=== PATIENT | female | born 1955 | race Caucasian/White ===

== ENCOUNTER 2020-02-13 09:08 | Inpatient (IN) | payer MEDICARE, SELFPAY ==
[2020-02-13] VITALS (20 sets, daily range): BP systolic 117–147; BP diastolic 51–98; PULSE 62–111; RESP 10–29; TEMP 36.4–37.1; O2SAT 88–99; BMI 41.8
--- NOTE | ~2020-02-13 | XR_ITS ---
EXAMINATION: XR chest 1V portable INDICATION: Increasing shortness of breath, COVID 19 positive TECHNIQUE: Portable AP chest at 0945 hours COMPARISON: 08/20/2018 FINDINGS: There are airspace opacities of the left mid and lower lung zones. No pleural effusion or p neumothorax is identified. The cardiomediastinal silhouette is normal. IMPRESSION: 1. Airspace opacities of the left mid and lower lung zones, compatible with COVID 19 pneumonia. Reviewed, dictated and finalized at location A. IMPRESSION: 1. Airspace opacities of the left mid and lower lung zones, compatible with COV ID 19 pneumonia.
--- NOTE | 2020-02-13 09:18 | ECG_ITS ---
Measurements Intervals [place] Rate: 104 P: 23 ME: 136 QRS: -29 QRSD: 85 T: -8 QT: 331 QTc: 436 Interpretive Statements SINUS TACHYCARDIA ATRIAL PREMATURE COMPLEXES INCOMPLETE RIGHT BUNDLE BRANCH BLOCK LOW QRS VOLTAGE IN PRECORDIAL LEADS POOR R WAVE PROGRESSION, ANTERIOR LEADS BORDERLINE T WAVE ABNORMALITY- INFERIOR LEADS BASELINE ARTIFACT- I, II, III, AVR, AVL, AVF, V1, V4-V6 ABNORMAL ECG Electronically Signed On 02-13-2020 9:40:29 CDT by Jacob Raphael D.O.
--- NOTE | 2020-02-13 09:30 | PC.NURSE ---
Patient running in place with this RN, pulse ox dropped down to 89% on room air, patient states shortness of breath increased.
[2020-02-13 09:37] LABS: Basophils Percent Auto 0.2 % (0.2-1.2); Eosinophils Percent Auto 0.2 % (0-4.4); Hematocrit 42.8 % (37.0-47.0); Immature Granulocyte Absolute 0.02 K/mm3 (0.00-0.031); Immature Granulocyte Percent A 0.4 % (0-0.5); Lymphocytes Absolute Auto 1.46 K/mm3 (0.9-3.2); Lymphocytes Percent Auto 27.3 % (18.3-44.2); Mean Corpuscular HGB Conc 32.7 g/dl (32-36); Mean Corpuscular Hemoglobin 30.6 pg (26-34); Mean Corpuscular Volume 93.4 fl (80-100); Mean Platelet Volume 10.4 fl (7.4-10.4); Monocytes Absolute Auto 0.5 K/mm3 (0.1-0.6); Monocytes Percent Auto 9.6 % (2.6-8.5); Neutrophils Absolute Auto 3.3 K/mm3 (1.3-6.7); Neutrophils Percent Auto 62.3 % (45.5-73.1); Platelet Count Result 166 k/mm3 (150-375); Red Blood Count 4.58 M/mm3 (4.2-5.4); Red Cell Distribution Width 13.2 % (11.5-14.5); White Blood Count 5.3 K/mm3 (4.5-10.0)
[2020-02-13 09:51] LABS: Anion Gap 13.4 mmol/L (7-16); Blood Urea Nitrogen 13 mg/dL (7-17); Carbon Dioxide 26 mmol/L (22-30); Chloride 102 mmol/L (98-107); Estimated CRCL calculation 72 ml/min; Estimated Glomerular Filt Rate > 60; Glucose 127 mg/dL (65-105); Lactic Acid Reflex 0.7 mmol/L (0.7-2.1); Potassium 4.4 mmol/L (3.4-5.0); Sodium 137 mmol/L (137-145)
--- NOTE | 2020-02-13 10:45 | ED.SOB ---
HPI - SOB/Dyspnea General Chief Complaint: Shortness of Breath/Dyspnea Stated Complaint: covid +, worsening sob Time Seen by Provider: 02/13/20 09:15 History of Present Illness HPI Narrative: Patient is a 64-year-old female who presents ER with shortness of breath. Patient reports 1 week ago she started having sinus congestion and then lost her sense of taste and smell. Spam feeling more well couple days ago and tested positive for COVID-19 on 02/11/2020. Today she woke up and she feels more short of breath/when she tries to take a deeper breath feels like she just does not fully get her breath. Low-grade temps. No fevers or chills or sweats. She has no chest pain or pressure. Reports exertional dyspnea. Dry cough that is nonproductive. Related Data Home Medications Medication Instructions Recorded Confirmed naproxen 500 mg PO PRN PRN 02/13/20 02/13/20 Allergies Allergy/AdvReac Type Severity Reaction Status Date / Time cephalexin Allergy Unknown Hives Verified 02/13/20 09:11 CEPHALEXIN MONOHYDRATE Allergy Severe HIVES Uncoded 02/13/20 09:11 Review of Systems Review of Systems: All systems reviewed & are unremarkable except as noted in HPI and below Constitutional: Constitutional: Denies chills, Reports fatigue and Denies fever(s) ENT: Reports nasal congestion and Reports sore throat Comments: loss of taste/smell Cardiovascular: Cardiovascular: Denies chest pain and Denies radiating jaw, neck or arm pain Respiratory: Respiratory: Reports chest congestion, Reports cough, Reports dyspnea and Denies wheezing Gastrointestinal: Gastrointestinal: Denies abdominal pain, Denies nausea and Denies vomiting Genitourinary: Genitourinary: Denies nocturia and Denies dysuria [facility] Past Medical History Medical History (Updated 02/13/20 @ 18:17 by Silverio Ferraro MD) Healthy female adult Rectal polyp (~05/2015) Hyperplastic polyp removed per Dr. Vasquez. Surgical History Surgical History (Updated 02/13/20 @ 17:40 by Christine Martinez PA-C) History of arthroscopy of right knee (~02/2018) Partial medial meniscectomy per Dr. iGll. History of breast biopsy History of section Family History Family History (Updated 02/13/20 @ 17:41 by Christine Martinez PA-C) Father Carcinoma of colon Sibling Carcinoma of colon Mother Family history of malignant neoplasm of cervix Family history of lung cancer Family history of malignant neoplasm of breast in first degree relative Carcinoma of colon Family history of malignant neoplasm of brain Son Neurofibromatosis type II Social History Social History Smoking status: Never smoker Second hand tobacco smoke exposure: No Alcohol intake: current Substance use: never Gender identity (if verbalized by the patient): Female Sexual Orientation (if Verbalized by the Patient): Straight or Heterosexual Spiritual care concerns: Yes (would like a visit or call) Exam Narrative: Exam Narrative: GENERAL: Well-appearing, well-nourished, and in no acute distress. HEAD: Normocephalic, atraumatic. ENT: Mucous membranes moist. CHEST: Clear to auscultation. No respiratory distress. HEART: Regular rate and rhythm. Normal peripheral pulses. EXTREMITIES: Normal range of motion. No edema. SKIN: Warm, dry, no rash. NEURO: Alert and oriented x3. PSYCH: Normal mood and affect. Course Course Emergency Course: Patient hypoxic with exertion and intermittently at rest. Admit to hospital service for antibiotics and updraft treatments. Vital Signs Vital signs: Vital Signs Temperature 98.4 F 02/13/20 09:20 Pulse Rate 111 H 02/13/20 09:20 Respiratory Rate 24 H 02/13/20 09:20 Blood Pressure 147/98 H 02/13/20 09:20 Pulse Oximetry 96 02/13/20 09:20 Temperature 97.6 F 02/13/20 16:00 Pulse Rate 98 02/13/20 16:00 Respiratory Rate 22 H 02/13/20 16:00 Blood Pressure 127/51
[2020-02-13] MEDS: DEXAMETHASONE 2 MG TABLET 6 MG PO (11:19)
--- NOTE | 2020-02-13 11:59 | PC.NURSE ---
Report attemptedSindhu on third floor states nurse is busy at this time, and will call the ER when she is ready.
--- NOTE | 2020-02-13 12:08 | PC.NURSE ---
Report attempted again, Sindhu on third floor states nurse and charge nurse are busy at this time. They will call ER when ready
[2020-02-13] MEDS: ACETAMINOPHEN 325 MG TABLET 650 MG PO ×2 (13:04→20:46)
--- NOTE | 2020-02-13 13:14 | ADMGEN ---
This patient, Tawnya Arias, was admitted to [facility] Surg Room 330-01. Patient/family oriented to hospital policies and general routines including ID bracelet, bed and alarms, visiting hours, pain management, procedures, bathroom and other care routines, personal items, smoking policy, room service/diet, and visiting hours. Valuables list has been completed. Information on how to activate the Rapid Response Team has been discussed. Patient/Family are encouraged to report perceived risks to care and to ask questions if they do not understand what they are told or what they should do.
[2020-02-13] MEDS: ALBUTEROL SULFATE (*SP) INHALER 1 PUFF (13:22)
[2020-02-13] MEDS: ALBUTEROL SULFATE (*SP) AEROSOL 1 PUFF 2 PUFF INHALATION ×3 (13:22→20:49)
--- NOTE | 2020-02-13 15:45 | PM.IMHP ---
H&P: HPI History of Present Illness Date/Time: 02/13/20 15:45 Chief complaint: Shortness of breath. Narrative: Tawnya Arias is a Pleasant 64-year-old female without significant medical history presented to the emergency department earlier this morning via private vehicle from home for evaluation of shortness of breath. Last Monday she and her drove via car to [facility], transporting a family member who was recently hospitalized back home. They returned home last Monday and at that time she reports having mild sinus congestion and shortly thereafter she noticed a decrease in smell and taste. Since that time, it has come to light that her son, [id number], and grandchild had tested positive for COVID-19. She was tested on February 10 and was found to be positive as well. Since being tested, she has had increasing feelings of shortness of breath, feeling like she is having a hard type taking in a deep breath. additionally she has had a low-grade fever up to 99.8, diffuse frontal headache, and has had periods of lightheadedness along with mild tachycardia with exertion. She has not necessarily had a cough. She denies nausea, vomiting, and diarrhea. She denies chest pain, pleuritic pain, lower extremity edema, and history of venous thromboembolism. Review of Systems Review of Systems: Narrative: Twelve systems were reviewed with pertinent positives and negatives as per HPI. No new medication she takes at home is naproxen, 1 time a day and she has for couple of years due to knee pain. She denies GERD and indigestion symptoms. No hematemesis or melena. Strong family history for colon cancer, and recent testing for Bhandari syndrome was negative. Except as documented, all other systems were reviewed and are negative. [facility] Past Medical History Medical History (Updated 02/13/20 @ 18:17 by Silverio Ferraro MD) Healthy female adult Rectal polyp (~05/2015) Hyperplastic polyp removed per Dr. Vasquez. Surgical History Surgical History (Updated 02/13/20 @ 17:40 by Christine Martinez PA-C) History of arthroscopy of right knee (~02/2018) Partial medial meniscectomy per Dr. Gill. History of breast biopsy History of section Family History Family History (Updated 02/13/20 @ 17:41 by Christine Martinez PA-C) Father Carcinoma of colon Sibling Carcinoma of colon Mother Family history of malignant neoplasm of cervix Family history of lung cancer Family history of malignant neoplasm of breast in first degree relative Carcinoma of colon Family history of malignant neoplasm of brain Son Neurofibromatosis type II Social History Social History (Updated 02/14/20 @ 00:20 by Christine Martinez PA-C) Social History: The patient is and lives home with her . 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 No alcohol or illicit substance abuse. She designates her as her surrogate decision maker and she wishes to be a full code. Smoking status: Never smoker Second hand tobacco smoke exposure: No Alcohol intake: current Substance use: never Gender identity (if verbalized by the patient): Female Sexual Orientation (if Verbalized by the Patient): Straight or Heterosexual Spiritual care concerns: Yes (would like a visit or call) Meds Home Medications and Allergies Home Medications Medication Instructions Recorded Confirmed Type naproxen 500 mg PO PRN PRN 02/13/20 02/13/20 History Allergies Allergy/AdvReac Type Severity Reaction Status Date / Time cephalexin Allergy Unknown Hives Verified 02/13/20 09:11 CEPHALEXIN MONOHYDRATE Allergy Severe HIVES Uncoded 02/13/20 09:11 Vital Signs Vital Signs - 24 hr 02/13/20 09:20 02/13/20 09:29 02/13/20 09:31 Temperature 98.4 F Pulse Rate 104 H 108 H 98 Respiratory Rate 24 H 16 17 Blood Pressure 147/98 H 147/98 H 145/70 H Pulse Oximetry 96 95 94 02/13/20
[2020-02-14] VITALS (9 sets, daily range): BP systolic 112–142; BP diastolic 51–65; PULSE 57–110; RESP 18–24; TEMP 36.4–37.2; O2SAT 91–96
[2020-02-14] MEDS: NAPROXEN 500 MG TABLET PO (05:16)
[2020-02-14 06:19] LABS: Hematocrit 40.3 % (37.0-47.0); Hemoglobin 13.1 g/dL (12.0-15.0); Mean Corpuscular HGB Conc 32.5 g/dl (32-36); Mean Corpuscular Hemoglobin 30.1 pg (26-34); Mean Corpuscular Volume 92.6 fl (80-100); Mean Platelet Volume 10.4 fl (7.4-10.4); Platelet Count Result 195 k/mm3 (150-375); Red Blood Count 4.35 M/mm3 (4.2-5.4); Red Cell Distribution Width 12.8 % (11.5-14.5); White Blood Count 5.2 K/mm3 (4.5-10.0)
[2020-02-14 06:46] LABS: Alanine Aminotransferase 27 U/L (4-35); Alkaline Phosphatase 77 U/L (38-126); Anion Gap 12.9 mmol/L (7-16); Aspartate Amino Transferase 23 U/L (14-36); Bilirubin,Total 0.2 mg/dL (0.2-1.3); Blood Urea Nitrogen 13 mg/dL (7-17); Calcium 8.9 mg/dL (8.4-10.2); Carbon Dioxide 26 mmol/L (22-30); Chloride 105 mmol/L (98-107); Estimated CRCL calculation 97 ml/min; Estimated Glomerular Filt Rate > 60; Glucose 171 mg/dL (65-105); Potassium 4.9 mmol/L (3.4-5.0); Sodium 139 mmol/L (137-145)
[2020-02-14 06:47] LABS: CRP 5.2 mg/dL (<1.0); Lactate Dehydrogenase 550 U/L (313-618)
[2020-02-14] MEDS: DEXAMETHASONE 2 MG TABLET 6 MG PO (08:45)
[2020-02-14] MEDS: ENOXAPARIN 40 MG/0.4 ML SYRINGE SUB-Q (08:45)
[2020-02-14] MEDS: ALBUTEROL SULFATE (*SP) AEROSOL 1 PUFF 2 PUFF INHALATION ×3 (09:35→15:37)
--- NOTE | 2020-02-14 11:40 | HOMEO2EVAL ---
Home Oxygen Evaluation RC: Home Oxygen (O2) Evaluation Start: 02/14/20 10:11 Freq: ONCE Status: Active Protocol: RPE Activity Type Activity Date Activity User E-Sign Co-Sign Detail Recorded Client Recorded Date Recorded By Document 02/14/20 11:15 SHRADDHA [id number] 02/14/20 11:40 SHRADDHA Document 02/14/20 11:20 SHRADDHA [id number] 02/14/20 11:40 SHRADDHA Document 02/14/20 11:25 SHRADDHA [id number] 02/14/20 11:40 SHRADDHA 02/14/20 02/14/20 02/14/20 11:15 11:20 11:25 Home O2 Evaluation Test Phase Resting Exercise Resting Oxygen Delivery Room Air Room Air Room Air Pulse Oximetry (90-100 %) 94 91 93 Pulse Rate (60-100 beats/min) 78 110 H Activity Tolerance Excellent Ambulation Distance (feet) 200 Home Oxygen Evaluation Comments PATIENT WALKED IN ROOM. NO HOME O2 REQUIRED AT THIS TIME. Treatment Charges O2 Evaluation
--- NOTE | 2020-02-14 11:40 | PCRCNOTE ---
HOME O2 EVAL COMPLETED. NO HOME O2 NEEDED AT THIS TIME. RN AND PA AWARE.
--- NOTE | 2020-02-14 14:09 | PM.DS ---
DS: Admitting Diagnosis Admitting Diagnosis Admitting Diagnosis: Pneumonia due to 2019 novel coronavirus DS: Discharge Diagnosis Discharge Diagnosis (1) Pneumonia due to 2019 novel coronavirus: Code(s): U07.1 - COVID-19; J12.89 - Other viral pneumonia Status: Acute Assessment and Plan: Patient tested positive on 02/11/2020. She began having symptoms approximately 5 days prior. Her inflammatory markers were monitored. Due to intermittent hypoxia, she was started on dexamethasone and she received 2 doses. She was weaned to room air and was maintaining adequate oxygenation. She had a home O2 eval and she did not require any additional home oxygen. Preliminary blood culture showed NGTD and final cultures will be monitored. Her symptoms improved and she began feeling much better. She will follow-up with her PCP in 1 week to monitor her symptoms. (2) Hypoxia: Code(s): R09.02 - Hypoxemia Status: Acute Assessment and Plan: She required 1 L of O2 per nasal cannula for a brief time due to intermittent hypoxia. She was weaned to room air as above and did not require home oxygen. DS: Summary Hospital Course Reason for hospitalization: Shortness of breath, COVID positive Hospital Course: Date of admission: 02/13/2020 Date of discharge: 02/14/2020 Tawnya Arias is a healthy 64-year-old female who presented to the emergency department on 02/13/2020 with complaints of shortness of breath. Approximately 1 week ago, she began having sinus congestion and loss of sense of taste and smell. She called her PCP and had outpatient testing at the drive-through testing facility [facility]. She does not positive on 02/11/2020. On 02/12, she felt more short of breath and had difficulty taking deep breath, as well as low-grade fever with T-max 99.8?. at presentation, she was mildly tachycardic and tachypneic, WBC 5.3, electrolytes stable, and CXR showing airspace opacities of the left mid and lower lung zones compatible with COVID-19 pneumonia. She was admitted to the hospitalist service for further evaluation and treatment. She was started on dexamethasone and additional supportive care. She was weaned to room air. She began feeling much better and requested discharge. Given her stable oxygen requirements in symptomatic improvement, she was determined to no longer require inpatient care. Please see above for further details. We discussed importance of self isolation, social distancing, mask wearing, hygiene, and additional methods to help slow the spread of Coronavirus. She will schedule an appointment with her PCP for follow-up in 1 week to discuss her hospital stay. We discussed worrisome signs and symptoms for which she should return. All of her questions were answered. She was discharged in hemodynamically stable condition on 02/14/2020. Status at Discharge Functional status at discharge: independent ambulation Overall status at discharge: patient is back to baseline Time Spent with Patient Time attestation: Total time spent providing and/or coordinating discharge services: 40 minutes Time spent: Greater than 30 minutes Exam Narrative: Exam Narrative: Ms. Arias is a Well-nourished 64-year-old female who is sitting up in bed. She appears comfortable and is in no acute respiratory distress. HR 80, BP 133/52, RR 18, T 98.2?, 94% on room Neuro: awake, alert and oriented x4, speech clear, no focal neuro deficits noted HEENMT: normocephalic, atraumatic, EOMI, sclerae anicteric, moist oral mucosa, tongue midline, nares patent Neck: supple, no lymphadenopathy Respiratory: clear to auscultation bilaterally, nonlabored breathing Cardio: regular rate, regular rhythm with S1-S2 Abdomen: nondistended, normoactive bowel sounds, soft, nontender, to palpation, no rigidity or guarding Extremities: no edema, erythema, cyanosis, clubbing, or tenderness to palpation, DP pulses 2+ bilaterally Skin: no rashes or l
== END 2020-02-14 15:40 | disposition home or self-care (01) | DRG 177 ==
LOC: ANHED 11:21 → ANH3MEDSUR 11:53
PROVIDERS: Physician Assistant; Admitting Provider Family Medicine; Emergency Provider Emergency Medicine; PCP Family Medicine; Visit Provider Physician Assistant
DX: U07.1 COVID-19 (principal); J12.89 Other viral pneumonia; R09.02 Hypoxemia
CPT/HCPCS: 36415; 71045; 80048; 80053; 82728; 83605; 83615; 85025; 85027; 86140; 87040; 93005; 94618; 94640; 96374; 99285; A9270; J0456; J1650; J8540

== ENCOUNTER 2020-04-06 10:56 | Outpatient (CLI) | payer MEDICARE, SELFPAY ==
--- NOTE | ~2020-04-06 | US_ITS ---
EXAMINATION: US venous doppler [facility] EXAM DATE: 04/06/2020 11:41 INDICATION: Left leg pain and swelling, calf. TECHNIQUE: Multiple grayscale, color flow and Doppler images of the left lower extremity deep venous system were obtained and reviewed. There is no prior study for comparison. FINDINGS: The left common femoral, femoral and profunda veins demonstrate normal color flow, respirat ory variation, augmentation and compressibility. Compressibility, color flow confirmed within the le ft popliteal, posterior tibial, peroneal, and greater saphenous veins. IMPRESSION: 1. No left lower extremity deep venous thrombosis. Reviewed, dictated and finalized at location A.
== END 2020-04-06 10:57 | disposition home or self-care (01) ==
LOC: ANHIMG 10:57
PROVIDERS: PCP Family Medicine; Visit Provider Family Medicine
DX: M79.606 Pain in leg, unspecified (principal); R60.9 Edema, unspecified
CPT/HCPCS: 93971

== ENCOUNTER 2020-06-11 08:53 | Outpatient (CLI) | payer MEDICARE, SELFPAY ==
--- NOTE | ~2020-06-11 | MM_ITS ---
EXAMINATION: MM screening tran BI w kranthi HISTORY: Screening TECHNIQUE: Craniocaudal and mediolateral oblique 3-D tomosynthesis images were obtained and synthetic 2-D images were generated. CAD analysis was submitted and interpreted. COMPARISON: No prior mammogram is available for comparison at this institution. BREAST PARENCHYMAL COMPOSITION: There are scattered areas of fibroglandular density. FINDINGS: Stable bilateral axillary tail intramammary lymph nodes. There is no evidence of suspicious mass, calcification, or architectural distortion to suggest malignancy in either breast. There has b een no suspicious interval change. IMPRESSION: 1. No mammographic evidence of malignancy. 2. Recommend routine screening mammography in one year. BI-RADS Category 2: Benign finding(s). Reviewed, dictated and finalized at location A. RESSIVE CARE NURSE
== END 2020-06-11 08:54 | disposition home or self-care (01) ==
LOC: ANHIMG 09:04
PROVIDERS: PCP Family Medicine; Visit Provider Obstetrics & Gynecology
DX: Z12.31 Encounter for screening mammogram for malignant neoplasm of breast (principal)
CPT/HCPCS: 77063; 77067

== ENCOUNTER → 2020-09-05 01:38 | Outpatient (CLI) | payer MEDICARE, SELFPAY ==
[2020-09-05 23:34] LABS: SARS-CoV-2 RNA PCR Negative
== END ==
PROVIDERS: PCP Family Medicine; Visit Provider Internal Medicine Gastroenterology
DX: Z01.812 Encounter for preprocedural laboratory examination (principal); Z20.822 Contact with and (suspected) exposure to COVID-19
CPT/HCPCS: C9803; U0003; U0005

== ENCOUNTER 2020-09-09 00:51 | Day surgery (SDC) | payer MEDICARE, SELFPAY ==
[2020-08-25 14:07] VITALS: BMI 35.3
--- NOTE | 2020-09-08 15:18 | P.PNAN_ITS ---
Anes - Initial Pre Proc Eval Procedure: Operation Date: 09/09/20 07:30 Proposed Procedures p Screening Colonoscopy - Masood Reynoso MD Date/Time: 09/08/20 15:18 Surgeon: Masood Reynoso MD Pre Op Diagnosis: neoplasm screening Patient Data Age: 65 Gender: F Height: 1.52 m Weight: 82 kg Allergies Allergy/AdvReac Type Severity Reaction Status Date / Time cephalexin Allergy Intermediate Hives Verified 08/25/20 14:09 Home Medications Medication Instructions Recorded Confirmed Type naproxen 500 mg PO DAILY 02/13/20 08/25/20 History sodium,potassium,mag sulfates See Rx Instructions .ROUTE 08/07/20 Rx [Suprep Bowel Prep Kit] .COMPLEX #1 ml solifenacin 10 mg PO DAILY 08/25/20 08/25/20 History PMFSH Past Medical History Medical History (Updated 09/08/20 @ 15:19 by Last Monterroso MD) Healthy female adult History of vaginal delivery Obesity Rectal polyp (~05/2015) Hyperplastic polyp removed per Dr. Vasquez. Surgical History Surgical History History of arthroscopy of right knee (~02/2018) Partial medial meniscectomy per Dr. Gill. History of bilateral tubal ligation History of breast biopsy History of section Family History Family History Father Carcinoma of colon Sibling Carcinoma of colon Mother Family history of malignant neoplasm of cervix Family history of lung cancer Family history of malignant neoplasm of breast in first degree relative Carcinoma of colon Family history of malignant neoplasm of brain Son Neurofibromatosis type II Social History Social History Social History: The patient is and lives home with her . 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 No alcohol or illicit substance abuse. She designates her as her surrogate decision maker and she wishes to be a full code. Smoking status: Never smoker Second hand tobacco smoke exposure: No Alcohol intake: current Drinks per week: 2 Substance use: never Substance use type: does not use Gender identity (if verbalized by the patient): Female Spiritual care concerns: No Anes - Eval Final PreProcedure Day of Procedure 09/08/20 15:18 Patient weight: obese Heart: regular rate and rhythm Lungs: clear to auscultation and normal air movement Airway: Mallampati scale class II Neurological: alert and oriented Last oral intake: >/= 8 hours ASA classification: II Emergent: no Anesthetic plan: proceed Anesthesia type and monitoring: general GIVS Informed Consent: The patient's anesthetic plan and its attendant risks and benefits were discussed with the patient/family/POA. Questions were solicited and answers provided to the satisfaction of the patient/family/POA.
[2020-09-09 06:23] VITALS: BP 151/66; PULSE 90; RESP 18; TEMP 36.2; O2SAT 97; BMI 43.9
[2020-09-09] MEDS: LACTATED RINGERS 1,000 ML 150 ML IV CONT (06:36)
--- NOTE | 2020-09-09 06:43 | WPDANESEPPF ---
Anes - Initial Pre Proc Eval Procedure: Operation Date: 09/09/20 07:30 Proposed Procedures p Screening Colonoscopy - Masood Reynoso MD Date/Time: 09/09/20 06:43 Surgeon: Masood Reynoso MD Pre Op Diagnosis: neoplasm screening Patient Data Age: 65 Gender: F Height: 5 ft Weight: 102.2 kg Last Vital Signs Temp 36.2 C L 09/09/20 06:23 Pulse 90 09/09/20 06:23 Resp 18 09/09/20 06:23 BP 151/66 H 09/09/20 06:23 Pulse Ox 97 09/09/20 06:23 Allergies Allergy/AdvReac Type Severity Reaction Status Date / Time cephalexin Allergy Intermediate Hives Verified 09/09/20 06:22 Home Medications Medication Instructions Recorded Confirmed Type naproxen 500 mg PO DAILY 02/13/20 08/25/20 History sodium,potassium,mag sulfates See Rx Instructions .ROUTE 08/07/20 Rx [Suprep Bowel Prep Kit] .COMPLEX #1 ml solifenacin 10 mg PO DAILY 08/25/20 08/25/20 History Patient hx anesthesia problems: none Family hx anesthesia problems: none PMFSH Past Medical History Medical History Healthy female adult History of vaginal delivery Obesity Rectal polyp (~05/2015) Hyperplastic polyp removed per Dr. Vasquez. Surgical History Surgical History History of arthroscopy of right knee (~02/2018) Partial medial meniscectomy per Dr. Gill. History of bilateral tubal ligation History of breast biopsy History of section Family History Family History Father Carcinoma of colon Sibling Carcinoma of colon Mother Family history of malignant neoplasm of cervix Family history of lung cancer Family history of malignant neoplasm of breast in first degree relative Carcinoma of colon Family history of malignant neoplasm of brain Son Neurofibromatosis type II Social History Social History Social History: The patient is and lives home with her . 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 No alcohol or illicit substance abuse. She designates her as her surrogate decision maker and she wishes to be a full code. Smoking status: Never smoker Second hand tobacco smoke exposure: No Alcohol intake: current Drinks per week: 2 Substance use: never Substance use type: does not use Living arrangements: with family Gender identity (if verbalized by the patient): Female Spiritual care concerns: No Anes - Eval Final PreProcedure Day of Procedure 09/09/20 06:43 Patient weight: overweight Heart: regular rate and rhythm Lungs: clear to auscultation Airway: Mallampati scale class II Neurological: alert and oriented Last oral intake: >/= 8 hours ASA classification: II Emergent: no Anesthetic plan: proceed Anesthesia type and monitoring: general GIVS and standard monitoring Informed Consent: The patient's anesthetic plan and its attendant risks and benefits were discussed with the patient/family/POA. Questions were solicited and answers provided to the satisfaction of the patient/family/POA.
--- NOTE | 2020-09-09 07:32 | PM.HPGS ---
History of Present Illness History of Present Illness Consent: Risks, benefits, and alternatives have been discussed and questions answered. Patient agrees to proceed with procedure. Chief complaint: neoplasm screening Narrative: Tawnya Arias is a 65 year old female with history of colon cancer in bother and father, last colonoscopy 2014 Review of Systems Constitutional: Constitutional: Denies headache(s) and Denies weakness Eyes: Eyes: Denies blurry vision ENT: Reports Normal hearing present, Denies headache(s) and Denies neck pain Cardiovascular: Cardiovascular: Denies chest pain and Denies dyspnea Respiratory: Respiratory: Denies dyspnea Gastrointestinal: Gastrointestinal: Reports no additional gastrointestinal complaints Genitourinary: Genitourinary: Denies dysuria Musculoskeletal: Musculoskeletal: Denies neck pain Integumentary/Breasts: Skin/Breast: Denies dry skin Neurologic: Reports Normal hearing present, Denies headache(s) and Denies weakness Psychiatric: Psychiatric: Denies anxiety Endocrine: Endocrine: Denies change in body appearance Hematologic/Lymphatic: Hematologic/Lymphatic: Denies easy bleeding Allergic/Immunologic: Allergic/Immunologic: Denies urticaria PMFSH Past Medical History Medical History Healthy female adult History of vaginal delivery Obesity Rectal polyp (~05/2015) Hyperplastic polyp removed per Dr. Vasquez. Surgical History Surgical History History of arthroscopy of right knee (~02/2018) Partial medial meniscectomy per Dr. Gill. History of bilateral tubal ligation History of breast biopsy History of section Family History Family History Father Carcinoma of colon Sibling Carcinoma of colon Mother Family history of malignant neoplasm of cervix Family history of lung cancer Family history of malignant neoplasm of breast in first degree relative Carcinoma of colon Family history of malignant neoplasm of brain Son Neurofibromatosis type II Social History Social History Social History: The patient is and lives home with her . 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 No alcohol or illicit substance abuse. She designates her as her surrogate decision maker and she wishes to be a full code. Smoking status: Never smoker Second hand tobacco smoke exposure: No Alcohol intake: current Drinks per week: 2 Substance use: never Substance use type: does not use Living arrangements: with family Gender identity (if verbalized by the patient): Female Spiritual care concerns: No Meds Home Medications and Allergies Home Medications Medication Instructions Recorded Confirmed Type naproxen 500 mg PO DAILY 02/13/20 08/25/20 History sodium,potassium,mag sulfates See Rx Instructions .ROUTE 08/07/20 Rx [Suprep Bowel Prep Kit] .COMPLEX #1 ml solifenacin 10 mg PO DAILY 08/25/20 08/25/20 History Allergies Allergy/AdvReac Type Severity Reaction Status Date / Time cephalexin Allergy Intermediate Hives Verified 09/09/20 06:22 Vital Signs Vital Signs - 24 hr 09/09/20 06:23 Temperature 97.2 F L Pulse Rate 90 Respiratory Rate 18 Blood Pressure 151/66 H Pulse Oximetry 97 Exam Const: General: comfortable and no acute distress HENMT: General nose exam: Normal nares present Eyes: General: appearance normal, both eyes and all related structures Neck: Neck: no JVD Resp: Auscultation: clear to auscultation bilaterally Cardio: Rate: regular rate Rhythm: regular rhythm GI: Inspection: non-distended GI Palp: Yes Soft to palpation Skin: General skin exam: normal color Neuro: General: gait normal Sp
[2020-09-09 07:53] VITALS: BP 114/57; PULSE 82; RESP 21; O2SAT 97
[2020-09-09 08:03] VITALS: BP 129/56; PULSE 72; RESP 23; O2SAT 96
[2020-09-09 08:13] VITALS: BP 129/56; PULSE 74; RESP 25; O2SAT 98
== END 2020-09-09 08:20 | disposition home or self-care (01) ==
PROVIDERS: PCP Family Medicine; Visit Provider Internal Medicine Gastroenterology
PROC: 0DJD8ZZ Inspection of Lower Intestinal Tract, Via Natural or Artificial Opening Endoscopic (ICD-10-PCS; CPT 45378; principal; 2020-09-09 07:30)
DX: Z12.11 Encounter for screening for malignant neoplasm of colon (principal); K63.5 Polyp of colon; K64.8 Other hemorrhoids; Z80.0 Family history of malignant neoplasm of digestive organs; E66.01 Morbid (severe) obesity due to excess calories; Z68.41 Body mass index [BMI] 40.0-44.9, adult
CPT/HCPCS: 45380; 88305; J2001; J2704; J7120

== ENCOUNTER → 2021-05-04 17:18 | Outpatient (CLI) | payer MEDICARE, SELFPAY ==
--- NOTE | ~2021-05-04 | US_ITS ---
EXAMINATION: US pelvic complete w TV DATE: 05/04/2021 17:52 INDICATION: Postmenopausal bleeding. Comparison:Ultrasound dated 10/12/2006 TECHNIQUE: Multiple transabdominal and endovaginal sonographic images of the pelvis performed. FINDINGS: The uterus measures 7.2 x 2.9 x 4 cm. The endometrial complex measures 5 mm. Endometrium is heterogeneous. The ovaries are not visualized, likely atrophic. There is no free fluid in the pelvis. There are no abnormal masses seen on either side. IMPRESSION: 1. Thickened endomtrial complex. The differential diagnosis includes endometrial hyperplasia, polyp a nd carcinoma. Biopsy is recommended. Reviewed, dictated and finalized at location A. IMPRESSION: 1. Thickened endomtrial complex. The differential diagnosis includes endometria l hyperplasia, polyp and carcinoma. Biopsy is recommended.
== END ==
PROVIDERS: Visit Provider Obstetrics & Gynecology
DX: N95.0 Postmenopausal bleeding (principal)
CPT/HCPCS: 76830; 76856

== ENCOUNTER 2021-08-25 10:04 | Emergency (ER) | payer MEDICARE, SELFPAY ==
--- NOTE | ~2021-08-25 | XR_ITS ---
EXAMINATION: XR chest 2V DATE: 08/25/2021 10:24 INDICATION: Cough. Chest tightness. TECHNIQUE: Frontal and lateral views of the chest were obtained. COMPARISON: Chest single view 02/13/2020 FINDINGS: The chest demonstrates clear lungs without pneumonia, pleural effusion, or pneumothorax. Th e heart size is normal. IMPRESSION: 1. No acute cardiopulmonary disease. Reviewed, dictated and finalized at location A. [employer]
[2021-08-25 10:10] VITALS: BP 150/86; PULSE 97; RESP 18; TEMP 36.5; O2SAT 97
--- NOTE | 2021-08-25 10:17 | ED.URI ---
HPI - URI/Sore Throat General Chief Complaint: Upper Respiratory Infection Stated Complaint: Cough,Fever,Fatigue Source: patient and RN notes reviewed History of Present Illness HPI Narrative: This is a 66-year-old female who presents to urgent care with complaints shortness of breath, uncontrollable coughing, sinus pressure, postnasal dripping, and shortness of breath with chest tightness. Patient was previously diagnosed with COVID pneumonia and required oxygen on discharge from the hospital. Patient completed a Covid test at home which was negative. Patient influenza negative and chest x-ray did not indicate pneumonia. Patient does have a history of bronchitis and will be treated for bronchitis MD elicited complaint: cough and sinus pain Related Data Home Medications Medication Instructions Recorded Confirmed aspirin 81 mg tablet,delayed 81 mg PO DAILY 04/22/21 08/25/21 release Allergies Allergy/AdvReac Type Severity Reaction Status Date / Time cephalexin Allergy Intermediate Hives Verified 08/25/21 10:11 Review of Systems Review of Systems: A 14 organ system Review of Systems was performed and pertinent positives included in the HPI, otherwise remaining ROS is negative. [facility] Past Medical History Medical History Family history of colon cancer Healthy female adult History of vaginal delivery Obesity Rectal polyp (~05/2015) Hyperplastic polyp removed per Dr. Vasquez. Surgical History Surgical History History of arthroscopy of right knee (~02/2018) Partial medial meniscectomy per Dr. Gill. History of bilateral tubal ligation History of breast biopsy History of carpal tunnel surgery History of section Family History Family History Father Carcinoma of colon Sibling Carcinoma of colon Mother Family history of malignant neoplasm of cervix Family history of lung cancer Family history of malignant neoplasm of breast in first degree relative Carcinoma of colon Family history of malignant neoplasm of brain Son Neurofibromatosis type II Social History Social History Social History: The patient is and lives home with her . 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 No alcohol or illicit substance abuse. She designates her as her surrogate decision maker and she wishes to be a full code. Smoking status: Never smoker Second hand tobacco smoke exposure: No Alcohol intake: current Drinks per week: 2 Substance use: never Substance use type: does not use Gender identity (if verbalized by the patient): Female Sexual Orientation (if Verbalized by the Patient): Straight or Heterosexual Spiritual care concerns: No Exam Narrative: GENERAL: This is a well-nourished, well-developed patient, in no apparent distress. HEAD: normocephalic, atraumatic. EYES: PERRL. Sclera clear/white. Vision is grossly intact. EARS: External ears normal, auditory canals clear and without drainage, TMs normal without perforation. Hearing grossly intact. NOSE: External nose normal with no obvious nasal discharge, nares without redness, no rhinorrhea. THROAT: Mucous membranes moist, posterior pharynx clear. NECK: Neck supple, non-tender without lymphadenopathy, masses or thyromegaly. CARDIOVASCULAR: Regular rate and rhythm without murmurs, gallops, or rubs. RESPIRATORY: Clear to auscultation. Breath sounds equal bilaterally. No wheezes, rales, or rhonchi. GASTROINTESTINAL: Abdomen soft, non-tender, nondistended. Bowel sounds are active. No hepato-splenomegaly, or palpable masses. No guarding. SKIN: warm, intact with no suspicious lesions or rash, good texture and turgor. NEURO: awake, alert, a
== END 2021-08-25 10:41 | disposition home or self-care (01) ==
PROVIDERS: Emergency Provider Nurse Practitioner; PCP Family Medicine
DX: J40 Bronchitis, not specified as acute or chronic (principal); E66.9 Obesity, unspecified; Z68.41 Body mass index [BMI] 40.0-44.9, adult
CPT/HCPCS: 71046; 87804; 99213; G0463

== ENCOUNTER 2021-11-10 07:48 | Outpatient (CLI) | payer MEDICARE, SELFPAY ==
--- NOTE | ~2021-11-10 | DEXA_ITS ---
Bone Density Report Name: DESI KNIGHT Age: 66 Sex: Female Ethnicity: White Date of : 1955 Indication: postmenopausal; screening for osteoporosis; Referring Provider: JUDITH HAWTHORNE Study: Bone densitometry was performed. Exam Date: November 10, 2021 Accession number: [id number] Bone Density: Region BMD T-score Z-score Classification AP Spine(L1-L4) 1.220 1.6 3.6 Normal Femoral Neck (Left) 0.720 -1.2 0.6 Osteopenia Total Hip (Left) 0.999 0.5 1.9 Normal Femoral Neck (Right) 0.644 -1.9 -0.1 Osteopenia Total Hip (Right) 1.055 0.9 2.4 Normal Total Hip Mean 1.027 0.7 2.2 Normal World Health Organization criteria for BMD impression classify patients as: Normal (T-score at or above -1.0), Osteopenia (T-score between -1.0 and -2.5), or Osteoporosis (T-score at or below -2.5). 10-year Fracture Risk(1): Major Osteoporotic Fracture 9.2% Hip Fracture 1.3% Reported Risk Factors: [place] (), Neck BMD=0.644, BMI=43.7 (1) FRAX(R) Version 3.08. Fracture probability calculated for an untreated patient. Fracture probability may be lower if the patient has received treatment. Previous Exams: Region Exam Age BMD T-score BMD Change BMD Change Date g/cm2 vs Baseline vs Previous AP Spine (L1-L4) 11/10/2021 66 1.220 1.6 0.053 (4.6%)* 0.053 (4.6%)* 05/03/2019 64 1.166 1.1 Total Hip(Left) 11/10/2021 66 0.999 0.5 -0.046 (-4.4%) -0.046 (-4.4%) 05/03/2019 64 1.045 0.8 Total Hip(Right) 11/10/2021 66 1.055 0.9 0.000 (0.0%) 0.000 (0.0%) 05/03/2019 64 1.055 0.9 *Denotes significance at 95% confidence level, LSC for AP Spine = 0.022 g/cm2, LSC for Total Hip = 0.027 g/cm2 Clinical Information Provided by Patient: Patient maximum height was 59.5 Menopause Age: 38 No regular weight bearing exercise Onset of menses at age 15 Number of children 2 Impression: The patient has low bone mass, based on the Right Femoral Neck T-score. The patient has an estimated ten-year risk of hip fracture of 1.3% and an estimated ten-year risk of major fracture of 9.2%, based on the WHO FRAX algorithm. The BMD for the Total Hip(Left) decreased, changing by -4.4% since the last DXA exam. Discussion: BONE DENSITY IS LOW AT ONE OR MORE SKELETAL SITES. This patient's lowest T-score is low at one or more skeletal sites. It meets the World Health Organization's (WHO) criteria for ?low bone mass? (T-score between -1.
--- NOTE | ~2021-11-10 | MM_ITS ---
EXAMINATION: MM screening [facility] BI w kranthi HISTORY: Screening mammogram TECHNIQUE: Craniocaudal and mediolateral oblique 3-D tomosynthesis images were obtained and synthetic 2-D images were generated. CAD analysis was submitted and interpreted. COMPARISON: 06/28/2020, 05/03/2019, 02/02/2018 bilateral screening mammogram examinations BREAST PARENCHYMAL COMPOSITION: There are scattered areas of fibroglandular density. FINDINGS: There is a circumscribed 7 mm mass in the outer right breast (craniocaudal Tomosynthesis im age 22/70; diagnostic right mammogram and right breast ultrasound examination are recommended. No suspicious mass, architectural distortion, malignant calcification, skin thickening or retraction of either breast is evident. IMPRESSION: 1. 7 mm mass in the right breast 2. Diagnostic right mammogram and right breast ultrasound examination are recommended BI-RADS Category 0: Incomplete: Needs additional imaging evaluation. Reviewed, dictated and finalized at location A. IMPRESSION: 1. 7 mm mass in the right breast 2. Diagnostic right mammogram and right breast ultrasound examination are recom mended BI-RADS Category 0: Incomplete: Needs additional imaging evaluation.
== END 2021-11-10 07:49 | disposition home or self-care (01) ==
LOC: ANHIMG 07:49
PROVIDERS: PCP Family Medicine; Visit Provider Obstetrics & Gynecology
DX: Z12.31 Encounter for screening mammogram for malignant neoplasm of breast (principal); Z78.0 Asymptomatic menopausal state; R92.8 Other abnormal and inconclusive findings on diagnostic imaging of breast; M85.89 Other specified disorders of bone density and structure, multiple sites
CPT/HCPCS: 77063; 77067; 77080

== ENCOUNTER → 2022-02-02 16:59 | Outpatient (CLI) | payer MEDICARE, SELFPAY ==
--- NOTE | ~2022-02-02 | XR_ITS ---
EXAMINATION: XR chest 2V Exam Date/Time: 02/02/2022 17:05 CDT HISTORY: R06.02 - Shortness of breath Comparison: 08/25/2021. RESULT: Lines, tubes, and devices: None. Lungs and pleura: Clear. Cardiomediastinal silhouette: Stable. Other: No acute osseous or upper abdominal finding. IMPRESSION: No acute cardiopulmonary process. Reviewed, dictated and finalized at location K.
== END ==
PROVIDERS: PCP Family Medicine; Visit Provider Physician Assistant
DX: R06.02 Shortness of breath (principal); R00.0 Tachycardia, unspecified; R00.2 Palpitations
CPT/HCPCS: 71046

== ENCOUNTER 2022-04-22 15:23 | Outpatient (CLI) | payer MEDICARE, SELFPAY ==
--- NOTE | ~2022-04-22 | US_ITS ---
EXAMINATION: US venous doppler [facility] DATE: 04/22/2022 16:05 INDICATION: Left lower limb pain and swelling TECHNIQUE: Rodriguez scale images without and with compression and Doppler images of the left lower extrem ity veins were obtained. COMPARISON: 03/29/2020 FINDINGS: The left common femoral vein, profunda femoral vein, femoral vein, popliteal vein, peroneal trunk, posterior tibial veins, and greater saphenous vein are patent. There is superficial thromboph lebitis in the medial aspect of the left leg. IMPRESSION: 1. No evidence of deep venous thrombosis. 2. Superficial thrombophlebitis in the medial aspect of the left leg. Reviewed, dictated and finalized at location F.
== END 2022-04-22 15:24 | disposition home or self-care (01) ==
PROVIDERS: PCP Family Medicine; Visit Provider Physician Assistant
DX: R60.9 Edema, unspecified (principal); M79.605 Pain in left leg
CPT/HCPCS: 93971

== ENCOUNTER 2024-07-22 10:10 | Emergency (ER) | payer MEDICARE, SELFPAY ==
[2024-07-22 10:22] VITALS: BP 138/53; PULSE 88; RESP 18; TEMP 36.6; O2SAT 99
--- NOTE | 2024-07-22 10:54 | ED.WOUNDLAC ---
HPI - Wound/Laceration General Chief Complaint: Wound/Laceration Stated Complaint: finger injury Time Seen by Provider: 07/22/24 10:54 Source: patient, RN notes reviewed and old records reviewed Mode of arrival: ambulatory Limitations: no limitations History of Present Illness HPI narrative: patient presents with complaints of laceration to knuckle of the right index finger. Injury happened just prior to arrival. Patient reports that she believes she cut it on a plastic bin that she was carrying. Bleeding is controlled upon arrival. She does admit that she needs tetanus shot updated. She denies other injury or trauma. Voices no other concerns or complaints at this time Related Data Home Medications ?Medication ?Instructions ?Recorded ?Confirmed ?Last Taken ?Type aspirin 81 mg tablet,delayed 81 mg PO DAILY 04/22/21 08/04/23 Unknown History release (Adult Low Dose Aspirin) ascorbic acid (vitamin C) 500 mg mg PO 08/24/22 08/04/23 Unknown History capsule calcium carbonate (Calcium 600) 600 mg PO DAILY 08/24/22 08/04/23 Unknown History metformin 500 mg tablet,extended 500 mg PO TID 07/21/23 08/04/23 Unknown History release 24hr (osmotic) tirzepatide 10 mg/0.5 mL mg subcut 07/22/24 Unknown History subcutaneous pen injector (Mounjaro) Allergies Allergy/AdvReac Type Severity Reaction Status Date / Time cephalexin Allergy Intermediate Hives Verified 07/22/24 10:55 Review of Systems Review of Systems: All systems reviewed & are unremarkable except as noted in HPI and below Constitutional: Constitutional: Reports no additional constitutional complaints ENT: Reports system reviewed and no additional complaints, except as documented Cardiovascular: Cardiovascular: Reports no additional cardiovascular complaints Respiratory: Respiratory: Reports no additional respiratory complaints Gastrointestinal: Gastrointestinal: Reports no additional gastrointestinal complaints Integumentary/Breasts: Skin/Breast: Reports system reviewed and no additional complaints, except as docu, Reports as per HPI and Reports wounds PMFSH Past Medical History Medical History Family history of colon cancer Healthy female adult History of vaginal delivery Obesity Rectal polyp (~05/2015) Hyperplastic polyp removed per Dr. Vasquez. Surgical History Surgical History History of carpal tunnel surgery History of bilateral tubal ligation History of arthroscopy of right knee (~02/2018) Partial medial meniscectomy per Dr. Gill. History of breast biopsy History of section Family History Family History Father Carcinoma of colon Sibling Carcinoma of colon Mother Family history of malignant neoplasm of cervix Family history of lung cancer Family history of malignant neoplasm of breast in first degree relative Carcinoma of colon Family history of malignant neoplasm of brain Son Neurofibromatosis type II Social History Social History Social History: The patient is and lives home with her . 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 No alcohol or illicit substance abuse. She designates her as her surrogate decision maker and she wishes to be a full code. Smoking status: Never smoker Second hand tobacco smoke exposure: No Alcohol intake: current Drinks per week: 2 Substance use: never Substance use type: does not use Lack of Transportation: No Lack of Food: Never True Current Housing: I Have Housing Concerned About Future Housing: No Difficulty Paying Gas/Electric Bills: No Difficulty Paying for Meds: No Currently Unemployed: No Education: Bachelor's Degree Difficulty w/ Childcare or Family Care: No Living arrangements: with family Occupation/Education: retired Gender identity (if verbalized by the patient): Female Sexual Orientation (if Verbalized by the Patient): Straight or Heterosexual Spiritual care concerns: No Comments At the time of my signature, I reviewed and agree with the nursing past medical, surgical, social, and family history. There is no relevant family history pertinent to the patient complaint. Exam Const: General: cooperative, no acute distress, alert and awake Orientation/consciousness: oriented to person, oriented to place and oriented to time HENMT: Head: normal to inspection Resp: Effort & Inspection: normal respiratory effort and able to speak in complete sentences Auscultation: clear to auscultation bilaterally, no crackles, no rales, no rhonchi and no wheezes Cardio: Palpation: normal PMI Rate: regular rate Rhythm: regular rhythm Heart sounds: S1 normal heart sound present and S2 normal heart sound present Neuro: General: oriented to person, oriented to place and oriented to time Cranial nerves: Yes CN's II-XII intact bilaterally Extrem: Right upper extremity: full ROM and Extremity exam: right hand normal capillary refill, neuromotor exam normal, neurosensory exam normal, tendon exam normal and laceration (second digit) Hand/finger images:  1. 3 cm lac Psych: Appearance: grossly normal Thought process: Normal thought process present Insight: Good insight present (Psych) Judgement: Good judgement present (Psych) Course Course Level of Care: Express Care Visit Vital Signs Vital signs: Vital Signs Temperature 97.9 F 07/22/24 10:22 Pulse Rate 88 07/22/24 10:22 Respiratory Rate 18 07/22/24 10:22 Blood Pressure 138/53 L 07/22/24 10:22 Pulse Oximetry 99 07/22/24 10:22 Oxygen Delivery Room Air 07/22/24 10:22 Temperature 97.9 F 07/22/24 10:22 Pulse Rate 88 07/22/24 10:22 Respiratory Rate 18 07/22/24 10:22 Blood Pressure 138/53 L 07/22/24 10:22 Pulse Oximetry 99 07/22/24 10:22 Oxygen Delivery Room Air 07/22/24 10:22 Reviewed Procedures Laceration Laceration 1: Date: 07/22/24 Time: 11:55 Site: hand Side (If applicable): right Size (cm): 3 Description: other (L shaped) Depth: simple, single layer ====== Skin Level ====== ====== Subcutaneous Layer ====== ====== Muscle Layer ====== ====== Tendon Layer ====== Nerve Block Nerve Block 1: Nerve block date: 07/22/24 Nerve block time: 11:50 Time out performed: Yes Local Anesthetic: lidocaine 1% Side: right Nerve Blocks: digital Procedure Successful: Yes Patient Tolerated Procedure: well Complications: none MDM - Wound/Laceration MDM Narrative Medical decision making narrative: patient tolerated wound repair well. Affected digit neurovascularly intact pre and post repair, tetanus Updated Discharge instructions reviewed with patient, as well as provided in writing per nursing staff. The instructions also include specific and strict return/GO TO THE ER as well as f/u information. All questions have been answered, and the patient deny any further questions with discharge and discharge plan. Some parts of this dictation were generated by voice recognition software and may contain typographical and/or grammatical inaccuracies. . Differential Diagnosis Differential diagnosis: Likely laceration, abrasion and avulsion of skin Medical Records Attestation: I reviewed the patient's medical records. Discharge Plan Discharge Clinical Impression: Laceration, Vaccine for [id number], combined Patient Disposition: Home, Self-Care Condition: Stable Instructions: Antibiotic Form, Care For Your Stitches (ED) Additional Instructions: please have sutures removed in 7-10 days. Follow with primary care provider. Emergency department for new or worsened symptoms Patient Language: Thai Prescriptions: No Action Mounjaro 10 mg/0.5 mL pen injector SUBCUT aspirin [Adult Low Dose Aspirin] 81 mg tablet,delayed release (DR/EC) 81 mg PO DAILY ascorbic acid (vitamin C) 500 mg capsule PO calcium carbonate [Calcium 600] 600 mg calcium (1,500 mg) tablet 600 mg PO DAILY atorvastatin 20 mg tablet 20 mg PO DAILY Qty: 90 3RF losartan 50 mg tablet 50 mg PO DAILY Qty: 90 3RF cholecalciferol (vitamin D3) 1,250 mcg (50,000 unit) capsule 1,250 mcg PO WEEKLY Qty: 30 0RF metformin 500 mg tablet extended release 24 hr 500 mg PO TID naproxen 500 mg tablet See Rx Instructions .ROUTE .COMPLEX Qty: 180 0RF Dose Instruction: TAKE 1 TABLET BY MOUTH TWICE DAILY WITH FOOD Rx Instructions: TAKE 1 TABLET BY MOUTH TWICE DAILY WITH FOOD Follow-up/Referrals: Perfecto Harris MD [Primary Care Provider] - 1 Week Time of Disposition: 12:09
[2024-07-22] MEDS: TETANUS,DIPHTHERIA,AC PERTUSSIS ADULT (0.5 ML) BOOSTRIX IM (11:31)
[2024-07-22] MEDS: LIDOCAINE 1% LOCAL INJ 2 ML AMPUL 8 ML INFILTRATE (11:31)
== END 2024-07-22 12:20 | disposition home or self-care (01) ==
PROVIDERS: Emergency Provider Nurse Practitioner Family; PCP Family Medicine
DX: S61.210A Laceration without foreign body of right index finger without damage to nail, initial encounter (principal); W45.8XXA Other foreign body or object entering through skin, initial encounter; Z23 Encounter for immunization; E66.9 Obesity, unspecified; Z68.32 Body mass index [BMI] 32.0-32.9, adult
CPT/HCPCS: 12002; 90471; 90715; 99212; G0463; J2003

== ENCOUNTER 2025-03-25 09:37 | Outpatient (CLI) | payer MEDICARE, SELFPAY ==
[2025-03-25 10:21] LABS: Alanine Aminotransferase 19 U/L (6-35); Aspartate Amino Transferase 24 U/L (14-36); Cholesterol 181 mg/dL (0-200); HDL Direct 51 mg/dL; Triglycerides 94 mg/dL (<150)
--- OUTSIDE RECORDS SUMMARY | 2025-03-25 11:02 | XMS_ITS | Clinical Summary ---
Author Organization [facility] [address] Address [address] [place] [address] Care Team Providers Care Stave Planer Tender Name Role Phone Perfecto Harris MD Primary Care Provider Allergies No known active allergies Medications atorvastatin (LIPITOR) 20 mg tablet Take 1 tablet (20 mg total) by mouth daily Active metFORMIN (FORTAMET) 500 mg 24 hr tablet Take 1 tablet (500 mg total) by mouth daily with breakfast Active aspirin 81 mg chewable tablet Take 1 tablet (81 mg total) by mouth daily Active oyaocwno-czf-hd lic acid-vit K 400-80 mcg capsule Take by mouth Active semaglutide (Ozempic) 2 mg/dose (8 mg/3 mL) pen injector injection Inject 2 mg under the skin Active losartan (COZAAR) 50 mg tablet Take 1 tablet (50 mg total) by mouth daily Active Active Problems Problem Noted Date Diagnosed Date Varicose veins of left lower extremity with pain 08/23/2023 Assessment & Plan (08/25/2023 10:12 AM SAS DEVELOPER ANALYST): Does not want any intervention at this time. Wanted reassurance that she was doing appropriate therapies. Encouraged continuation of exercise regimen, compression stockings and even massages for comfort. Follow-up P.r.n. Social History Tobacco Use Types Packs/Day Years Used Date Smoking Tobacco: Never Assessed Personal Safety Answer Date Recorded Getting School Help Needed Not on file 08/03 Comments Unknown Sex and Gender Information Value Date Recorded Sex Assigned at Not on file Legal Sex Female 8:06 AM CDT Gender Identity Not on file Sexual Orientation Not on file Last Filed Vital Signs Vital Sign Reading Time Taken Comments Blood Pressure 146/84 08/23/2023 8:53 AM SAS DEVELOPER ANALYST Pulse 80 08/23/2023 8:53 AM SAS DEVELOPER ANALYST Temperature - - Respiratory Rate - - Oxygen Saturation 98% 08/23/2023 8:53 AM SAS DEVELOPER ANALYST Inhaled Oxygen Concentration - - Weight - - Height - - Body Mass Index - - Plan of Treatment Health Maintenance Due Date Last Done Comments Colon Cancer Screening-Colonoscopy 1953 Depression Screening 1953 Fall Risk Assessment 1953 Hepatitis C Screening 1955 Osteoporosis Screening-Bone Density Scan 1953 DTaP/Tdap/Td Vaccine (1 - Tdap) 1964 Hepatitis B Screening 1971 Zoster Vaccine (1 of 2) 2003 Well Visit 65+ 2018 Pneumococcal vaccine 65+ (2 of 2 - PCV) 04/15/2021 04/15/2020 Breast Cancer Screening-Mammogram 11/30/2023 023, 11/29/2022 Covid-19 Vaccine ( season) 2025 05/17/2021, 08/24/2020, 08/03/2020 Influenza Vaccine (#1) 2025 03/24/2021, 2019 [place] [address] MEDICARE AET MEDICARE [employer] SENIOR SU[employer]LEMENT Care Teams Stave Planer Tender Relationship Specialty Start Date End Date Perfecto Harris MD [address] [facility] [address] [place] [address] PCP - General Family Medicine 02/03/22
--- OUTSIDE RECORDS SUMMARY | 2025-03-25 11:02 | XMS_ITS | Clinical Summary ---
Author Organization [facility] [address]la [address] Address [address] [place] [address] Phone Care Team Providers Care Literary Agent Name Role Phone Kermit Hadley MD Primary Care Provider [phone] Allergies Active Allergy Reactions Criticality Noted Date Comments Cephalexin Hives High 11/16/2021 Medications naproxen (NAPROSYN) 500 mg tablet Take 500 mg by mouth 2 times daily with meals. Active aspirin (ECOTRIN EC) 81 mg Tablet, Delayed Release (E.C.) Take 81 mg by mouth daily. Active Active Problems Patient Care Coordination No te Formatting of this note migh t be different from the original. Primary Care: Kermit Hadley MD Referring Provider: Julia Kang Other: Problem Noted Date Diagnosed Date Benign neoplasm of breast 06/01/2009 Encounters Date Type Department Care Team Description 03/18/2025 External Device Data STL ABSTRACTION Provider, Abstract 03/06/2025 7:13 AM CDT - 03/06/2025 11:59 PM CDT Hospital Encounter [facility] [address] [place] [address] Papa Cottrell MD Discharge Disposition: Home or Self Care 03/06/2025 7:12 AM CDT - 03/06/2025 11:59 PM T Hospital Encounter [facility] [address] [place] [address] Papa Cottrell MD Discharge Disposition: Home or Self Care 01/22/2025 External Device Data ST[facility] ABSTRACTION Provider, Abstract 01/21/2025 External Device Data [facility] ABSTRACTION Provider, Abstract 12/24/2024 External Device Data ST[facility] ABSTRACTION Provider, Abstract from Last 3 Months Family History Medical History Relation Name Comments Colon Cancer Father Breast Cancer Mother in her mid 30s Lung Cancer Mother Uterine Cancer Mother Relation Name Status Comments Father Mother Social History Tobacco Use Types Packs/Day Years Used Date Smoking Tobacco: Never Alcohol Use Standard Drinks/Week Comments Yes 0 (1 standard drink = 0.6 oz pur e alcohol) rarely Comments No Sex and Gender Information Value Date Recorded Sex Assigned at Not on file Legal Sex Female 5:27 AM ETL ARCHITECT Gender Identity Not on file Sexual Orientation Not on file Last Filed Vital Signs Vital Sign Reading Time Taken Comments Blood Pressure 128/72 11/16/2021 2:53 PM CDT Pulse 89 11/16/2021 2:53 PM CDT Temperature 36.9 C (98.4 F) 11/16/2021 2:53 PM CDT Respiratory Rate - - Oxygen Saturation 96% 11/16/2021 2:53 PM CDT Inhaled Oxygen Concentration - - Weight 106.6 kg (235 lb) 11/16/2021 2:53 PM CDT Height 152.4 cm (5') 11/16/2021 2:53 PM CDT Body Mass Index 45.9 11/16/2021 2:53 PM CDT Plan of Treatment Health Maintenance Due Date Last Done Comments COLORECTAL SCREENING 1998 Colorectal Cancer Screening 1998 FIT-DNA Q 3 years 1998 FIT/FOBT Q 1 year 1998 Flex Sig/CT Colonography Q 5 years 1998 OSTEOPOROSIS SCREENING 2018 PNEUMOCOCCAL VACCINE 50+ YEA RS (2 of 2 - PCV) 04/15/2021 04/15/2020 ZOSTER VACCINE (2 of 2) 09/17/2023 07/23/2023 INFLUENZA VACCINE (#1) 2025 2, 04/08/2021, 03/24/2021, Additional history exists BREAST CANCER SCREENING 03/06/2026 03/06/20 25, 07/26/2024, 11/29/2022, Additional history exists RSV VACCINE (60+ or ) (1 - 1-dose 75+ series) 2028 DTAP/TDAP/TD VACCINES (2 - T d or Tdap) 07/22/2034 07/22/2024 Procedures Procedure Name Priority Date/Time Associated Diagnosis Comments MAMMO DIAG UNI RIGHT 3D JAIDEN W OR WO CAD Routine 03/06/2025 7:37 AM CDT Lump or mass in breast Other signs and symptoms in breast MAMMO BREAST US RIGHT LTD Routine 03/06/2025 7:37 AM CDT Lump or mass in breast from Last 3 Months Results * MAMMO 3D JAIDEN DIAGNOSTIC UNI RT 3D W OR WO CAD (03/06/2025 7:37 AM CDT) Anatomical Region Laterality Modality Breast Right Mammography 03/06/2025 7:37 AM CDT Impressions 03/06/2025 12:58 PM CDT IMPRESSION: Negative and stable diagnostic tomogram right breast. Negative limited right breast sonogram. Recommend clinical follow-up for any palpable area. OVERALL FINAL ASSESSMENT: BI-RADS CATEGORY 1: Negative. DICTATION LOCATION: [facility] Narrative 03/06/2025 12:58 PM CDT RIGHT DIAGNOSTIC DIGITAL MAMMOGRAM WITH COMPUTER ASSISTED DIAGNOSIS WITH TOMOGRAPHY; LIMITED RIGHT BREAST SONOGRAM DATE: 03/06/2025 7:37 AM HISTORY: Linear palpable area periareolar right breast which has since resolved. TECHNIQUE: A diagnostic tomogram of the right breast was performed and is compared to 07/26/2024 to 11/10/2021. Low-dose full-field digital breast tomosynthesis examination was performed with 2D and 3D acquisitions. Examination is read in conjunction with computer aided detection. BREAST PARENCHYMA: There are scattered areas of fibroglandular density. FINDINGS: A standard three-view diagnostic examination was performed. There are scattered fibroglandular densities. No new dominant mass, suspicious calcifications or areas of parenchymal distortion are identified. Sonography of the palpable area in the lower outer 4:00 position of the right breast demonstrates mostly hypoechoic fatty lobules. There is minimal echogenic fibroglandular density. There are normal but slightly distended ducts. No mass, shadowing or distortion is identified. us Papa Cottrell MD MAMMO ORDERABLES Final Result * MAMMO BREAST US RIGHT LTD (03/06/2025 7:37 AM CDT) Anatomical Region Laterality Modality Right Ultrasound 03/06/2025 7:37 AM CDT Impressions 03/06/2025 12:58 PM CDT IMPRESSION: Negative and stable diagnostic tomogram right breast. Negative limited right breast sonogram. Recommend clinical follow-up for any palpable area. OVERALL FINAL ASSESSMENT: BI-RADS CATEGORY 1: Negative. DICTATION LOCATION: [facility] 03/06/2025 12:58 PM CDT RIGHT DIAGNOSTIC DIGITAL MAMMOGRAM WITH COMPUTER ASSISTED DIAGNOSIS WITH TOMOGRAPHY; LIMITED RIGHT BREAST SONOGRAM DATE: 03/06/2025 7:37 AM HISTORY: Linear palpable area periareolar right breast which has since resolved. TECHNIQUE: A diagnostic tomogram of the right breast was performed and is compared to 07/26/2024 to 11/10/2021. Low-dose full-field digital breast tomosynthesis examination was performed with 2D and 3D acquisitions. Examination is read in conjunction with computer aided detection. BREAST PARENCHYMA: There are scattered areas of fibroglandular density. FINDINGS: A standard three-view diagnostic examination was performed. There are scattered fibroglandular densities. No new dominant mass, suspicious calcifications or areas of parenchymal distortion are identified. Sonography of the palpable area in the lower outer 4:00 position of the right breast demonstrates mostly hypoechoic fatty lobules. There is minimal echogenic fibroglandular density. There are normal but slightly distended ducts. No mass, shadowing or distortion is identified. Papa Cottrell MD MAMMO ORDERABLES Final Result from Last 3 Months Insurance MEDICARE PART A AND B [employer] MEDICARE SUPP AESSI Care Teams Literary Agent Relationship Specialty Start Date End Date Kermit Hadley MD [address] [place] [address] PCP - General 05/15/00
--- OUTSIDE RECORDS SUMMARY | 2025-03-25 11:02 | XMS_ITS | Encounter Summary ---
Author Organization [facility] Address [address] [place] [address] Care Team Providers Care Senior Integration Architect Name Role Phone Kermit Hadley MD Primary Care Provider [phone] Encounter Details Date Type Department Care Team (Latest Contact Info) Description 05/15/2000 Outpatient Historical HIS OBSERVATION BED Michelet Tran MD BackerSam MD NO ADDRESS ON FILE Thoracic or lumbosacral neuritis or radiculitis, unspecified (Primary Dx) Social History Tobacco Use Types Packs/Day Years Used Date Smoking Tobacco: Never Assessed Comments Unknown Sex and Gender Information Value Date Recorded Sex Assigned at Not on file Legal Sex Female 5:27 AM YOUTH PROGRAM DIRECTOR Gender Identity Not on file Sexual Orientation Not on file documented as of this encounter Plan of Treatment Not on file documented as of this encounter Visit Diagnoses Diagnosis Thoracic or lumbosacral neuritis or radiculitis, unspecified- Primary documented in this encounter Care Teams Senior Integration Architect Relationship Specialty Start Date End Date Kermit Hadley MD [address] [place] [address] PCP - General 05/15/00 documented as of this encounter
== END 2025-03-25 09:38 | disposition home or self-care (01) ==
PROVIDERS: PCP Family Medicine; Visit Provider Student in an Organized Health Care Education/Training Program
DX: E78.5 Hyperlipidemia, unspecified (principal); Z79.899 Other long term (current) drug therapy
CPT/HCPCS: 36415; 80061; 84450; 84460